=== PATIENT | female | born 1955 | race Hispanic/Latino ===

== ENCOUNTER 2018-09-11 10:50 | Observation (INO) | payer MEDICARE, OTHER ==
[~2018-09-11] VITALS: Ht 149.9 cm; Wt 59.5 kg
[2018-09-11] MEDS ORDERED: ASPIRIN 81 MG CHEW TAB PO ONE (11:30)
[2018-09-11 11:37] LABS: BASOPHILS # (AUTO) 0.1 (0.0-0.1); BASOPHILS % 0.5 % (0.0-1.0); EOSINOPHILS % 0.2 % (0.0-6.0); HEMATOCRIT 42.8 % (34.2-44.1); HEMOGLOBIN 14.3 g/dL (12.0-16.0); LYMPHOCYTES # (AUTO) 1.4 (1.0-3.2); LYMPHOCYTES % 11.1 % (18.0-39.1); MEAN CORPUSCULAR HEMOGLOBIN 29.7 pg (28-32); MEAN CORPUSCULAR HGB CONC 33.4 g/dL (31-35); MONOCYTES # (AUTO) 1.2 (0.2-0.8); MONOCYTES % 9.7 % (4.4-11.3); NEUTROPHILS # (AUTO) 9.7 (2.1-6.9); NEUTROPHILS % 78.1 % (38.7-80.0); PLATELET COUNT 276 x10e3/uL (140-360); RED BLOOD COUNT 4.81 x10e6/uL (3.6-5.1); RED CELL DISTRIBUTION WIDTH 13.2 % (11.7-14.4)
[2018-09-11 11:53] LABS: INR 0.94; PROTHROMBIN TIME 13.4 seconds (11.9-14.5)
[2018-09-11 11:54] LABS: PARTIAL THROMBOPLASTIN TIME 27.8 seconds (23.8-35.5)
[2018-09-11 12:05] LABS: ALANINE AMINOTRANSFERASE 36 IU/L (0-55); ALBUMIN 3.6 g/dL (3.5-5.0); ALBUMIN/GLOBULIN RATIO 1.1 (0.8-2.0); ALKALINE PHOSPHATASE 79 IU/L (40-150); ANION GAP 12.8 mmol/L (8-16); BLOOD UREA NITROGEN 11 mg/dL (7-26); BUN/CREATININE RATIO 17 (6-25); CALCIUM 9.1 mg/dL (8.4-10.2); CARBON DIOXIDE 26 mmol/L (22-29); CHLORIDE 101 mmol/L (98-107); CREATINE KINASE 23 IU/L (29-168); CREATININE, SERUM 0.66 mg/dL (0.57-1.11); EST GLOMERULAR FILTRATION RATE > 60 ML/MIN (60-); GLUCOSE 96 mg/dL (74-118); POTASSIUM 3.8 mmol/L (3.5-5.1); SODIUM 136 mmol/L (136-145)
[2018-09-11] MEDS ORDERED: SODIUM CHLORIDE 0.9% 500ML 500 ML IV ONE (12:30)
--- NOTE | 2018-09-11 12:31 | Diagnostic Imaging Report ---
EXAMINATION: CHEST SINGLE (PORTABLE) INDICATION: Chest pain. COMPARISON: None FINDINGS: TUBES and LINES: None. LUNGS: Lungs are mildly hypoinflated. Mild elevation of the right hemidiaphragm. There is no evidence of pneumonia or pulmonary edema. PLEURA: No pleural effusion or pneumothorax. HEART AND MEDIASTINUM: The cardiomediastinal silhouette is mildly prominent, likely magnification by portable technique. BONES AND SOFT TISSUES: No acute osseous lesion. UPPER ABDOMEN: No free air under the diaphragm. IMPRESSION: No acute thoracic abnormality. Signed by: Dr. Petey Cosme M.D. on 09/11/2018 12:28 PM
[2018-09-11 12:48] LABS: COLOR,URINE YELLOW (YELLOW)
[2018-09-11 12:49] LABS: BILIRUBIN,URINE NEGATIVE (NEGATIVE); CLARITY,URINE HAZY (CLEAR); KETONES,URINE NEGATIVE (NEGATIVE); LEUKOCYTE ESTERASE ,URINE 1+ (NEGATIVE); NITRITE,URINE POSITIVE (NEGATIVE); PROTEIN,URINE DIPSTICK TRACE (NEGATIVE); URINE UROBILINOGEN 0.2 mg/dL (0.2 - 1)
[2018-09-11 13:18] LABS: BACTERIA,URINE MANY /HPF
[2018-09-11] MEDS ORDERED: CEFTRIAXONE SOD 1 GM VIAL IV ONE (14:00)
[2018-09-11] MEDS ORDERED: ASPIRIN 81 MG CHEW TAB PO STA (15:19)
[2018-09-11] MEDS ORDERED: ONDANSETRON HCL INJ 2MG/ML 2ML 2 MG/ML VIAL IV PRN (15:30)
--- OUTSIDE RECORDS SUMMARY | 2018-09-11 15:53 | XMS REPORT ---
Author Author [facility] Address Unknown Phone Unavailable Care Team Providers Care Business Relationship Manager Name Role Phone Kavitha BELTRE Unavailable Unavailable Problems This patient has no known problems. Allergies, Adverse Reactions, Alerts This patient has no known allergies or adverse reactions. Medications This patient has no known medications. Results Test Description Test Time Test Comments Text Results Atomic Results Result Comments CHEST SINGLE (PORTABLE) 2018-09-11 12:27:00 [place] [id number] Patient Name: JORDAN JIMENEZ MR #: [id number] : 1955 Age/Sex: 63/F Req #: [id number] Adm Physician: Ordered by: LAVON BELTRE MD Report #: [id number] Location: ER Room/Bed: Procedure: [id number] DX/CHEST SINGLE (PORTABLE) Exam Date: 09/11/18 Exam Time: 1110 REPORT STATUS: Signed EXAMINATION: CHEST SINGLE (PORTABLE) INDICA TION: Chest pain. COMPARISON: None FINDINGS: TUBES and LINES: None. LUNGS: Lungs are mildly hypoinflated. Mild elevation of the right hemidiaphragm. There is no evidence of pneumonia or pulmonary edema. PLEURA: No pleural effusion or pneumothorax. HEART AND MEDIASTINUM: The cardiomediastinal silhouette is mildly prominent, likely magnification by portable technique. BONES AND SOFT TISSUES: No acute osseous lesion. UPPER ABDOMEN: No free air under the diaphragm. IMPRESSION: No acute thoracic abnormality. Signed by: Dr. Petey Colon M.D. on 09/11/2018 12:28 PM Dictated By: ROMA COLON MD, MD [id number] Transcribed By: NATALIE on 09/11/188 COPY TO: LAVON BELTRE MD
[2018-09-11] MEDS: FAMOTIDINE 20 MG/2 ML VIAL IV SCH (16:59)
[2018-09-11 20:40] VITALS: BP 135/73
--- NOTE | 2018-09-11 20:45 | NUR ---
RECEIVED REPORT FROM NEYMAR MEDINA NURSE. PATIENT ARRIVED TO THE UNIT VIA WHEELCHAIR.
[2018-09-11 21:00] LABS: CREATINE KINASE 18 IU/L (29-168)
[2018-09-11 21:56] VITALS: BP 135/73
[2018-09-12] VITALS (7 sets, daily range): BP systolic 108–168; BP diastolic 63–90
[2018-09-12 00:30] LABS: CREATINE KINASE MB 0.4 ng/mL (0-5.0)
--- NOTE | 2018-09-12 01:39 | NUR ---
PATIENT IS ASLEEP IN BED WITH NO PAIN OR DISTRESS. CALL ESPINAL WITHIN REACH.
[2018-09-12] MEDS: CEFTRIAXONE SOD 1 GM/NS 50 ML 50 ML IV SCH ×2 (02:11→14:27)
[2018-09-12] MEDS: FAMOTIDINE 20 MG/2 ML VIAL IV SCH (03:54)
[2018-09-12 05:49] LABS: BASOPHILS # (AUTO) 0.1 (0.0-0.1); BASOPHILS % 0.6 % (0.0-1.0); EOSINOPHILS % 0.5 % (0.0-6.0); HEMATOCRIT 38.6 % (34.2-44.1); HEMOGLOBIN 12.6 g/dL (12.0-16.0); LYMPHOCYTES # (AUTO) 1.8 (1.0-3.2); LYMPHOCYTES % 21.1 % (18.0-39.1); MEAN CORPUSCULAR HEMOGLOBIN 29.1 pg (28-32); MEAN CORPUSCULAR HGB CONC 32.6 g/dL (31-35); MEAN CORPUSCULAR VOLUME 89.1 fL (81-99); MONOCYTES % 11.7 % (4.4-11.3); NEUTROPHILS # (AUTO) 5.5 (2.1-6.9); NEUTROPHILS % 65.7 % (38.7-80.0); PLATELET COUNT 250 x10e3/uL (140-360); RED BLOOD COUNT 4.33 x10e6/uL (3.6-5.1); RED CELL DISTRIBUTION WIDTH 13.2 % (11.7-14.4)
--- NOTE | 2018-09-12 06:03 | NUR ---
PATIENT IS RESTING IN BED. NO PAIN OR DISTRESS. CALL ESPINAL WITHIN REACH.
[2018-09-12 06:09] LABS: CREATINE KINASE 21 IU/L (29-168)
--- NOTE | 2018-09-12 06:47 | NUR ---
Report was given to oncoming nurse. Patient in lying in bed. No pain or distress. Call campos within reach.
--- NOTE | 2018-09-12 06:50 | NUR ---
rounded with scene shifter nurse, patient aware of change and in no distress. Call campos within reach and bed in lowest position.
[2018-09-12 06:51] LABS: ALANINE AMINOTRANSFERASE 37 IU/L (0-55); ALBUMIN/GLOBULIN RATIO 1.1 (0.8-2.0); ALKALINE PHOSPHATASE 71 IU/L (40-150); BLOOD UREA NITROGEN 13 mg/dL (7-26); BUN/CREATININE RATIO 22 (6-25); CALCIUM 8.7 mg/dL (8.4-10.2); CARBON DIOXIDE 23 mmol/L (22-29); CHLORIDE 105 mmol/L (98-107); CHOL/HDL RATIO 3.5 (3.0-3.6); CHOLESTEROL 189 MD/DL (0-199); CREATININE, SERUM 0.58 mg/dL (0.57-1.11); EST GLOMERULAR FILTRATION RATE > 60 ML/MIN (60-); GLUCOSE 96 mg/dL (74-118); HDL CHOLESTEROL 54 MG/DL (40-60); LDL CHOLESTEROL 120 MG/DL (60-130); SODIUM 136 mmol/L (136-145); TRIGLYCERIDES 75 MG/DL (0-149)
--- NOTE | 2018-09-12 08:48 | Consultation ---
DATE OF CONSULTATION: September 11, 2018 CARDIOLOGY CONSULTATION REASON FOR CONSULTATION: Near syncope and inverted T-waves. CONSULTING PHYSICIAN: Dr. Marmolejo. HPI: This is a pleasant 63-year-old female that presented with dizziness. According to the patient, she started having sense of rotation, moving around, confusion and later having a fall. She described it as coming suddenly with a feeling of lightheaded and slowly goes away. She stated this has been going on for a while now. She denied any chest pain, any palpitations, any diaphoresis, any headache, or nausea. Troponin was negative. EKG showed normal sinus rhythm with inverted T-waves. PAST MEDICAL HISTORY: UTI, hypertension, diverticulosis. PAST SURGICAL HISTORY: and cholecystectomy. FAMILY HISTORY: Positive for hypertension. SOCIAL HISTORY: No smoking. No drinking. MEDICATIONS: See med list. ALLERGIES: SHE IS NOT ALLERGIC TO ANY MEDICATION. REVIEW OF SYSTEMS: Negative except those mentioned above. She is positive for syncope. PHYSICAL EXAMINATION VITALS: Temperature 98, heart rate 100, blood pressure 115/65, respirations 18, oxygen saturation 97% on room air. GENERAL: She is awake, alert and oriented times 3. HEENT: Mucous membrane moist. NECK: Supple. LUNGS: Bilateral clear to auscultation. CARDIOVASCULAR: S1 and S2 present. ABDOMEN: Soft. NEUROLOGICAL; Intact. EXTREMITIES: With no edema. LABS: Sodium 136, potassium 4, chloride 105, CO2 23, BUN 13, creatinine 0.58, glucose 96. White blood cells 8.31, hemoglobin 12.6, hematocrit 38.6, and platelets 250,000. PT 13.4, PTT 27.8, and INR 0.94. IMPRESSION 1. Dizziness. 2. Abnormal electrocardiogram. 3. Hypertension. 4. Urinary tract infection. 5. Diverticulosis. 6. Status post fall. ASSESSMENT AND PLAN 1. Will go ahead and get another echocardiogram to assess the LV and the valve function. 2. She is pending carotid Doppler to rule out any occlusion. 3. Will check orthostatic vital signs. 4. Will get serial cardiac enzymes. 5. She refused cardiac stress test stating she had done one 2 years ago, and it was normal. Magnesium was normal at 2.1. Further cardiac workup pending clinical course. Thank you for this consultation. DICTATED BY RENAE OJEDA NP Job#: [id number] KERRI
[2018-09-12] MEDS ORDERED: ASPIRIN 81 MG ENTERIC COATED PO SCH (09:00)
--- NOTE | 2018-09-12 12:53 | NUR ---
SOCIAL WORK INITIAL ASSESSMENT Sr Risk Management Consultant to bedside to discuss plan of care with patient/family. CM/SW role and care transitions discussed. Anticipated discharge plan discussed along with duration of care. CM/SW discussed patients right to make decisions in care. CM/SW work hours given. Patient lives: IN HOUSE WITH FAMILY Admit/Transfer: VIA HOME POA/Emergency contact: BANDAR [phone] Current/Previous Home Health: NONE PCP/Follow-up Care: KUMAR Current/Previous DME: NONE Other Services: [facility] Employment Status: RETIRED Areas of Concerns: NONE Referral Needs: NONE Education Needs: NONE IMM/CARTER given and signed (if applicable): CARTER Goal for discharge: RETURN HOME CM/SW left business card at the bedside with contact information. Name and number was also written on the patients whiteboard. Patient verbalized understanding of discussion. CM will follow-up with ongoing discharge and transition of care needs.
--- NOTE | 2018-09-12 12:54 | NUR ---
POST DISCHARGE STATUS FORM FILED IN FRONT OF CHART NO NEEDS RETURNING HOME.
[2018-09-12] MEDS ORDERED: METOCLOPRAMIDE10 MG PO (15:40)
[2018-09-12] MEDS ORDERED: CEFUROXIME250 MG PO (15:40)
--- NOTE | 2018-09-12 16:17 | NUR ---
discharge instructions given to patient and , both verbalized understanding. IV discontinued at this time, catheter in tact and small dressing applied. Patient alert and oriented and will be wheeled from floor via wheelchair to personal auto to go home.
--- NOTE | 2018-09-12 17:31 | History and Physical ---
SHORTSTAY SUMMARY PRIMARY CARE PROVIDER: Dr. Tera Molina ADMITTING DIAGNOSES 1. Near syncope. 2. Chest discomfort. DISCHARGE DIAGNOSES 1. Near syncope. 2. Chest discomfort. 3. Myocardial infarction ruled out. BRIEF HISTORY: Ms. Guerrero is a 63-year-old woman presenting with epigastric, left upper quadrant and retrosternal discomfort, which was causing some lightheadedness and dizziness for the last 24 hours. PAST MEDICAL HISTORY: Unremarkable. MEDICATIONS: She is on no chronic medication. Denies diabetes or hypertension or any previous heart disease. ALLERGIES: HAS NO KNOWN DRUG ALLERGIES. She has a history of cholecystectomy. No other significant surgery. FAMILY HISTORY: Unremarkable. SOCIAL HISTORY: The patient is . Sinhala is her primary language. She does not smoke, drink or use illegal drugs. She is generally independently functioning. PHYSICAL EXAMINATION PSYCHIATRIC: She is alert and oriented times 3 with normal mood and affect. CONSTITUTIONAL: She has a normal body habitus. Is in no acute distress. VITAL SIGNS: Are as follows: Blood pressure is 124/65, pulse 75 and regular, respiratory rate 16, O2 sat 98%, temperature 96.2. Her initial temperature was 99.8. HEENT: Head is atraumatic. Her eyes are anicteric with clear conjunctivae. Ears and nares are without erythema or discharge. Oropharynx is clear. NECK: Supple with no mass or thyromegaly. LYMPHATIC SYSTEM: She has no palpable cervical, axillary or inguinal adenopathy. CARDIOVASCULAR: Her heart has a regular rate and rhythm without murmur or extra heart sounds. She has no carotid bruit. She has no peripheral edema. She has palpable dorsal pedal pulses. RESPIRATORY: Lungs are clear to auscultation and percussion with normal respiratory effort. GASTROINTESTINAL: The patient is very mildly tender in the left upper quadrant. ABDOMEN: Otherwise soft. She has normal bowel sounds. She has no hepatosplenomegaly or masses palpable. CUTANEOUS: Her skin is warm and dry to touch. There is no rash or skin breakdown. MUSCULOSKELETAL: Her joints are in normal alignment without erythema or swelling. She has no calf tenderness. NEUROLOGIC: Nonfocal with intact cranial nerves and no motor or sensory deficits. REVIEW OF SYSTEMS: She denies fever, chills or weight loss. She denies sinus congestion or sore throat. She had chest discomfort as noted, atypical in nature, most likely reflux. She denies shortness breath, wheezing or cough. She has a little bit of left upper quadrant abdominal pain likely due to peptic acid disease. She denies dysuria or flank pain. She denies rash or pruritus. She denies joint pain or swelling. She denies headache. She did have some lightheadedness and dizziness, but she denied any loss of consciousness. She denies depression, agitation, homicide, or suicidal ideation. DIAGNOSTIC STUDIES: Her chest x-ray showed no acute disease and completely clear. Her carotid Dopplers showed no obstruction at all. Perfectly clear. She had an echocardiogram that showed normal LV function with an ejection fraction of 50% to 55%. Normal LV size and wall motion and wall thickness. Her UA showed 11-20 white cells with many bacteria. Her troponin less than 0.001, 0.002 and less than 0.001. Cholesterol 189. Triglycerides 75, LDL 120, HDL 54. Her chemistry profile was unremarkable with normal electrolytes. CO2 23, creatinine 0.58, BUN 13 for a normal GFR. Glucose is 96. Calcium is 8.7. Transaminases, bilirubin and alk phos are normal. Magnesium is 2.1. CBC shows a white count of 8.3 with a normal differential. Hemoglobin 12.6, hematocrit 38.6 and platelet count 250,000. IMPRESSION AND PLAN 1. Atypical chest pain: Rule out acute coronary syndrome. Patient has serial cardiac enzymes that were negative. She had an echocardiogram that was normal. Carotids are normal. She had a recent stress test that was normal. She was seen by cardiology who felt that any further workup was unnecessary. They cleared her for discharge home. 2. Gastroesophageal reflux: The patient's atypical chest pain is likely due to acid reflux. Will start her on [id number] Nexium q.a.m. and Reglan 10 mg twice a day before meals. 3. Urinary tract infection: Patient started on intravenous Rocephin. The cultures are pending. Will send the patient home on p.o. cefuroxime 500 twice daily. 4. For prophylaxis, the patient had sequential compression devices placed and is on Pepcid. HOSPITAL COURSE: The patient was admitted to the floor overnight. Her EKG initially showed normal sinus rhythm with some T-wave inversion in the anterior leads, but no acute changes. Her serial cardiac enzymes were negative. She was seen by cardiology who did not feel a stress test was indicated. The patient was discharged home on [id number] Nexium 20 mg q.a.m., Reglan 10 mg twice a day before meals, and cefuroxime 500 mg twice daily for 5 days. She has no home meds to consider. She can resume a regular diet and activity as tolerated, and follow up with her regular PCP within 2 weeks. Job#: [id number] KERRI
== END 2018-09-12 16:18 | disposition home or self-care (01) ==
LOC: ER 10:50 → ERHOLD 15:49 → IMCU 20:40
PROVIDERS: ADMIT Internal Medicine; ATTEND Internal Medicine
DX: R07.89 Other chest pain (principal); R55 Syncope and collapse; N39.0 Urinary tract infection, site not specified; K21.9 Gastro-esophageal reflux disease without esophagitis; R94.31 Abnormal electrocardiogram [ECG] [EKG]; K57.92 Diverticulitis of intestine, part unspecified, without perforation or abscess without bleeding; W19.XXXA Unspecified fall, initial encounter; I10 Essential (primary) hypertension
CPT/HCPCS: 36415; 71045; 80053 ×2; 80061; 81001; 82550 ×2; 82553 ×2; 83735; 83880; 84484 ×2; 85025 ×2; 85610; 85730; 93005; 93306; 93880; 99284; G0378 ×2; J0696 ×2; J7040